=== PATIENT | male | born 1950 | race Caucasian/White ===

== ENCOUNTER 2019-11-06 10:21 | Emergency (ER) | payer MEDICARE, BC ==
[2019-11-06] MEDS ORDERED: Bacitracin Oint 1 GM U/D Packet TOP ONE (10:54)
--- NOTE | 2019-11-06 11:36 | EDM.PDOC ---
ED HPI GENERAL MEDICAL PROBLEM - General Chief Complaint: Laceration Stated Complaint: FELL AND CUT FACE AND EAR AREA Time Seen by Provider: 11/06/19 11:10 Source of Information: Reports: Patient, Old Records, RN History Limitations: Reports: No Limitations - History of Present Illness INITIAL COMMENTS - FREE TEXT/NARRATIVE: 69 yo male got dizzy today about an hour after awakening and fell into a wooden fence injuring his R cheek and ear. Here for eval and repair. Tetanus is UTD. No longer dizzy. 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: Other (see below) (none) - Related Data Allergies Allergy/AdvReac Type Severity Reaction Status Date / Time No Known Allergies Allergy Verified 11/06/19 10:43 Home Meds: Home Meds Simvastatin 1 tab PO BEDTIME 11/06/19 [History] lamoTRIgine [Lamictal] 2 tab PO BID 11/06/19 [History] Past Medical History Cardiovascular History: Reports: High Cholesterol Neurological History: Reports: Seizure Social & Family History - Tobacco Use Smoking Status *Q: Never Smoker ED ROS GENERAL - Review of Systems Review Of Systems: See Below Constitutional: Reports: No Symptoms HEENT: Reports: No Symptoms Respiratory: Reports: No Symptoms Cardiovascular: Reports: No Symptoms Skin: Reports: Wound (R ear and R cheek) Neurological: Reports: Dizziness (now resolved) ED EXAM, SKIN/RASH Exam: See Below Exam Limited By: No Limitations General Appearance: Alert, WD/WN, No Apparent Distress Ears: Hearing Grossly Normal, Other (laceration of R auricle staring hear tragus and extending outward.) Nose: Normal Inspection Throat/Mouth: Normal Voice, No Airway Compromise Neck: No: Normal Inspection Extremities: Normal Inspection, Normal Range of Motion, Non-Tender, No Pedal Edema Neurological: Alert, Oriented, CN II-XII Intact, Normal Cognition, No Motor/ Sensory Deficits Psychiatric: Normal Affect, Normal Mood Skin: Warm, Dry, Normal Color, No Rash, Wound/Incision (2.3 cm R auricle laceration, 2.5 cm R cheek flap laceration) Location, Skin: Face (R cheek) Characteristics: Linear (ear), Other (flap R cheek) ED SKIN PROCEDURES - Laceration/Wound Repair Right Ear Appearance: Subcutaneous, Linear, Clean Distal NVT: Neuro & Vascular Intact, No Tendon Injury Anesthetic Type: Local Local Anesthesia - Lidocaine (Xylocaine): 1% Plain Local Anesthetic Volume: 3cc Skin Prep: Saline Closed with: Sutures Lac/Wound length In cm: 2.5 Suture Size: 6-0 Suture Type: Prolene, Interrupted, Simple # of Sutures: 4 Drain Placement: No Sterile Dressing Applied: Nurse Tetanus Status Addressed: Yes Complications: No Right Cheek Appearance: Subcutaneous, Irregular (flap), Clean Anesthetic Type: Local Local Anesthesia - Lidocaine (Xylocaine): 1% Plain Local Anesthetic Volume: 2cc Skin Prep: Saline Closed with: Sutures Lac/Wound length In cm: 2.4 Suture Size: 6-0 # of Sutures: 4 Suture Type: Prolene, Interrupted, Simple Drain Placement: No Sterile Dressing Applied: Nurse Tetanus Status Addressed: Yes Complications: No Course - Vital Signs Last Recorded V/S: Last Vital Signs Temp 36.5 C 11/06/19 10:52 Pulse 67 11/06/19 10:52 Resp 14 11/06/19 10:52 BP 140/84 11/06/19 10:52 Pulse Ox 96 11/06/19 10:52 - Orders/Labs/Meds Meds: Medications Discontinued Medications Generic Name Dose Route Start Last Admin Trade Name Freq PRN Reason Stop Dose Admin Bacitracin 1 dose 11/06/19 10:54 11/06/19 11:18 Bacitracin Oint 1 Gm TOP 11/06/19 10:55 1 dose ONETIME ONE Administration Lidocaine HCl 5 ml 11/06/19 10:54 11/06/19 11:18 Xylocaine-Mpf 1% INJECT 11/06/19 10:55 5 ml ONETIME ONE Administration Departure - Departure Time of Disposition: 11:41 Disposition: Home, Self-Care 01 Condition: Good Clinical Impression: Facial laceration Qualifiers: Encounter type: initial encounter Qualified Code(s): S01.81XA - Laceration without foreign body of other part of head, initial encounter Laceration of auricle of right ear Qualifiers: Encounter type: initial encounter Qualified Code(s): S01.311A - Laceration without foreign body of right ear, initial encounter - Discharge Information *PRESCRIPTION DRUG MONITORING PROGRAM REVIEWED*: No *COPY OF PRESCRIPTION DRUG MONITORING REPORT IN PATIENT JENNIE: No Instructions: Laceration Care, Adult, [id number] Referrals: PCP,None [Primary Care Provider] - Additional Instructions: Clean wounds twice daily with soap and water. Dry. Apply antibiotic ointment and a new dressing. Report signs of infection. Stitches out in your clinic in a week. Sepsis Event Note - Evaluation Sepsis Screening Result: No Definite Risk - Focused Exam Vital Signs: Vital Signs Temp Pulse Resp BP Pulse Ox 11/06/19 10:52 36.5 C 67 14 140/84 96 Date Exam was Performed: 11/06/19 Time Exam was Performed: 11:31
== END 2019-11-06 12:30 | disposition home or self-care (01) ==
LOC: JP.ED 10:21
DX: S01.311A Laceration without foreign body of right ear, initial encounter (principal); S01.411A Laceration without foreign body of right cheek and temporomandibular area, initial encounter; E78.00 Pure hypercholesterolemia, unspecified; R56.9 Unspecified convulsions; Z79.899 Other long term (current) drug therapy; W22.8XXA Striking against or struck by other objects, initial encounter
CPT/HCPCS: 12013; 99282; J2001; 99283